=== PATIENT | female | born 1995 | race Caucasian/White ===

== ENCOUNTER 2017-08-09 06:55 | Emergency (ER) | payer OTHER ==
[2017-08-09] MEDS ORDERED: ACETAMINOPHEN 500 MG TAB PO ONE (07:10)
[2017-08-09] MEDS ORDERED: DIPHENHYDRAMINE HCL PO ONE ×3 (07:12)
[2017-08-09] MEDS ORDERED: LIDOCAINE VISCOUS 2% PO ONE ×3 (07:12)
[2017-08-09] MEDS ORDERED: [UNRECOGNIZED DRUG - OTHER] PO ONE ×3 (07:12)
[2017-08-09 07:13] VITALS: O2SAT 96
[2017-08-09] MEDS ORDERED: diphenhydrAMINE HCL 12.5 MG/5 ML UD ONE (07:13)
[2017-08-09] MEDS ORDERED: ALUMINUM & MAGNESIUM HYDROXIDE 30 ML UD ONE (07:14)
[2017-08-09] MEDS ORDERED: LIDOCAINE HCL 2% (MOUTH-THROAT) 15 ML UD ONE (07:14)
--- NOTE | 2017-08-09 07:15 | ED.PDOC ---
History of Present Illness - General Chief Complaint: ENT Problem Stated Complaint: Strep Throat Time Seen by Provider: 08/09/17 07:10 Source: patient, RN notes reviewed, Vital Signs reviewed Exam Limitations: no limitations - History of Present Illness Initial Comments: Patient comes in to ER with c/o Strep Throat and not feeling better. She was diagnosed with Strep @ the clinic 2 days ago. She was given steroid shots and an Rx for Cefdinir. Started the antibiotic yesterday and has only taken 2 doses. She has had a fever to 102 degrees but has not taken any Tylenol or Ibuprofen. Timing/Duration: gradual Severity: moderate EENT Location: throat Prearrival Treatment: prescription meds Improving Factors: nothing Worsening Factors: eating Associated Symptoms: fever, malaise, sore throat Allergies/Adverse Reactions: Allergies Penicillins Allergy (Verified 09/13/14 08:29) Home Medications: Ambulatory Orders LORazepam [Ativan] 1 mg PO Q8HR PRN #15 tab 06/20/14 Lamotrigine [Lamictal Odt] 25 mg PO DAILY #10 tab 06/22/14 Lidocaine HCl (Mouth-Throat) [Lidocaine Viscous] 2 % MT Q4HR PRN #30 ml Review of Systems - Review of Systems Constitutional: States: chills, fever, malaise EENTM: States: see HPI, throat pain, throat swelling Respiratory: States: no symptoms reported Cardiology: States: no symptoms reported Gastrointestinal/Abdominal: States: no symptoms reported Musculoskeletal: States: no symptoms reported Skin: States: no symptoms reported Neurological: States: no symptoms reported All other Systems: No Change from Baseline Past Medical History (General) - Patient Medical History Hx Seizures: No Hx Stroke: No Hx Dementia: No Hx Asthma: No Hx of COPD: No Hx Cardiac Disorders: No Hx Congestive Heart Failure: No Hx Pacemaker: No Hx Hypertension: No Hx Thyroid Disease: No Hx Diabetes: No Hx Gastroesophageal Reflux: No Hx Renal Disease: No Hx Cancer: No Hx of HIV: No Hx Hepatitis C: No Hx MRSA: No - Vaccination History Hx Pneumococcal Vaccination: No - Social History Hx Tobacco Use: No Hx Alcohol Use: Yes - Female History Patient : No Family Medical History - Family History Father Family History: Unknown Physical Exam - Physical Exam General Appearance: Alert, Comfortable, Ill Appearing, Well Developed, Well Groomed, Well Hydrated, Well Nourished Eye Exam: bilateral normal Ear Exam: bilateral ear: auricle normal Nasal Exam: normal inspection Throat Exam: pharynx swelling, pharynx tenderness, tonsillar exudate, tonsillar swelling Neck: supple, lymphadenopathy (R), lymphadenopathy (L) Cardiovascular/Respiratory: regular rate, rhythm, no M/R/G, normal breath sounds , no respiratory distress Neurologic: alert, normal mood/affect, oriented x 3 Skin Exam: normal color, warm/dry Comments: Vital Signs 08/09/17 07:01 Temperature 102.0 F H Pulse Rate [ 111 H left brachial] Respiratory 20 Rate Blood Pressure 119/74 [left brachial] O2 Sat by Pulse 96 Oximetry Progress - Progress Progress: 08/09/17 07:16 Discussed with patient that she is on appropriate antibiotics. She needs to give them 48-72 hours to work. Also, she needs to treat her fever and pain with Tylenol &/or Ibuprofen. Will give Tylenol 1gm PO here along with a dose of magic mouthwash. Departure - Departure Clinical Impression: Streptococcal sore throat Time of Disposition: 07:44 Disposition: Discharge to Home or Self Care Condition: Fair Departure Forms: ED Discharge - Pt. Copy, Patient Portal Self Enrollment Instructions: DI for Strep Throat Diet: resume usual diet Activity: increase activity as tolerated Referrals: Sunil Jeter MD [Primary Care Provider] - 1-2 Weeks Prescriptions: Lidocaine HCl (Mouth-Throat) [Lidocaine Viscous] 2 % MT Q4HR PRN #30 ml PRN Reason: Throat Pain Home Medications: Ambulatory Orders LORazepam [Ativan] 1 mg PO Q8HR PRN #15 tab 06/20/14 Lamotrigine [Lamictal Odt] 25 mg PO DAILY #10 tab 06/22/14 Lidocaine HCl (Mouth-Throat) [Lidocaine Viscous] 2 % MT Q4HR PRN #30 ml Additional Instructions: Alternate Tylenol 1gm and Ibuprofen 600mg every 3 hours as needed for fever and throat pain Continue and finish antibiotics
[2017-08-09 07:56] VITALS: BP 123/80; TEMP 100.7
== END 2017-08-09 07:56 | disposition home or self-care (01) ==
LOC: ER 06:55
DX: J02.0 Streptococcal pharyngitis (principal); Z88.0 Allergy status to penicillin